=== PATIENT | female | born 1960 | race Caucasian/White ===

== ENCOUNTER 2022-08-09 10:11 | Inpatient (IN) | payer MEDICAID ==
[~2022-08-09] VITALS: Ht 154.9 cm; Wt 49.0 kg
[2022-08-09 10:49] LABS: BASOPHILS % (AUTO) 0.2 % (0-1); EOSINOPHILS % (AUTO) 0.1 % (0-6); HEMATOCRIT 51.1 % (35.0-45.0); HEMOGLOBIN 17.3 g/dl (12.0-16.0); LYMPHOCYTES % (AUTO) 9.3 % (21-51); MEAN CORPUSCULAR HEMOGLOBIN 30.9 PG (27.0-31.0); MEAN CORPUSCULAR HGB CONC 33.8 g/dL (33.0-36.5); MEAN CORPUSCULAR VOLUME 91.5 FL (78-98); MEAN PLATELET VOLUME 6.9 FL (7.4-10.4); MONOCYTES # (AUTO) 0.9 X10'3 (0-0.9); MONOCYTES % (AUTO) 7.9 % (2-12); NEUTROPHILS # (AUTO) 9.2 X10'3 (1.8-7.7); NEUTROPHILS % (AUTO) 82.5 % (42-75); PLATELET COUNT 481 X10'3 (140-440); RED BLOOD COUNT 5.58 X10'6 (4.20-5.60); RED CELL DISTRIBUTION WIDTH 13.3 % (11.5-14.5); WHITE BLOOD COUNT 11.2 X10'3 (4.5-11.0)
[2022-08-09] MEDS ORDERED: normal saline 1000ML IV soln IVB ONE ×2 (10:50→11:05)
[2022-08-09] MEDS ORDERED: ondansetron/PF 4mg/2ml inj IV ONE (10:50)
[2022-08-09 10:57] LABS: URINE HCG NEGATIVE (NEG)
[2022-08-09 11:01] LABS: ALANINE AMINOTRANSFERASE 42 U/L (12-78); ALBUMIN 3.3 G/DL (3.4-5.0); ALBUMIN/GLOBULIN RATIO 0.8 (1.1-1.5); ALKALINE PHOSPHATASE 78 IU/L (46-116); ANION GAP 9 (8-16); ASPARTATE AMINO TRANSFERASE 25 U/L (10-37); BILIRUBIN,TOTAL 0.9 MG/DL (0.1-1.0); BLOOD UREA NITROGEN 12 MG/DL (7-18); BUN/CREATININE RATIO 14.3 (10.0-20.0); CALCIUM 8.7 MG/DL (8.5-10.1); CHLORIDE 90 MMOL/L (99-107); CREATININE 0.84 MG/DL (0.40-0.90); GLUCOSE 133 MG/DL (70-104); LIPASE 51 U/L (73-393); POTASSIUM 3.3 MMOL/L (3.5-5.1); SODIUM 127 MMOL/L (135-145); TOTAL CARBON DIOXIDE 28.5 MMOL/L (24-32); TOTAL PROTEIN 7.7 G/DL (6.4-8.2); eGFR 68 ML/MIN
[2022-08-09] MEDS ORDERED: POTASSIUM BICARB 20meq eff tab 20 MEQ TABLET.EFF PO ONE (11:05)
[2022-08-09] MEDS ORDERED: magnesium 2GM in 50ml NS 50 ML IV ONE (11:05)
[2022-08-09 11:46] LABS: CLARITY,URINE SLIGHTLY CLOUDY (Clear); COLOR,URINE YELLOW (Yellow); GLUCOSE, URINE NEGATIVE (Neg); KETONES,URINE NEGATIVE (Neg); LEUKOCYTE ESTERASE ,URINE NEGATIVE (Neg); NITRITES, URINE NEGATIVE (Neg); OCCULT BLOOD,URINE LARGE (Neg); PROTEIN,URINE 100 mg/dl (Neg); UROBILINOGEN,URINE 0.2 E.U/dL (0.2-1.0)
[2022-08-09 11:54] LABS: UA COLLECTION TYPE CLN CATCH MIDSTREAM
[2022-08-09 11:57] LABS: BACTERIA,URINE 2+ /HPF (Neg); MUCUS STRANDS MODERATE /LPF (Neg); SQUAMOUS EPITHELIAL CELL,UR FEW /LPF (FEW)
--- NOTE | 2022-08-09 12:04 | NUR ---
Dr. George at bedside talking to patient
[2022-08-09] MEDS ORDERED: magnesium 4gm in 100ml NS 100 ML IV PRN (12:15)
[2022-08-09] MEDS ORDERED: magnesium Cl slow-release 64mg tablet PO PRN (12:15)
[2022-08-09] MEDS ORDERED: potassium Cl 40MEQ/1/2NS 520ml 520 ML IV PRN (12:15)
[2022-08-09] MEDS ORDERED: Potassium Cl inj 20 MEQ in normal saline 1000ml 990 ML IV SCH (12:15)
[2022-08-09] MEDS ORDERED: potassium Cl 20 mEq SR tablet PO PRN ×2 (12:15)
[2022-08-09] MEDS ORDERED: acetaminophen 325mg tablet PO PRN ×2 (12:15)
[2022-08-09] MEDS ORDERED: ondansetron/PF 4mg/2ml inj IV PRN (12:15)
[2022-08-09] MEDS ORDERED: magnesium 2GM in 50ml NS 50 ML IV PRN (12:15)
[2022-08-09] MEDS ORDERED: ciprofloxacin 250mg tablet PO ONE (12:20)
[2022-08-09] MEDS: potassium Cl 20mEq in NS 1,000 ML IV SCH (12:41)
[2022-08-09 13:00] LABS: CHOL/HDL RATIO 1.9 (0.00-4.99); CHOLESTEROL 178 MG/DL (0-200); HDL CHOLESTEROL 93 MG/DL (35-60); LDL CHOLESTEROL 65 MG/DL (50-100); TRIGLYCERIDES 43 MG/DL (20-135)
[2022-08-09] MEDS ORDERED: EZET10TA48 PO (13:15)
[2022-08-09] MEDS ORDERED: ALIR75PE5 SQ (13:16)
[2022-08-09] MEDS ORDERED: BUDE10.26 IH (13:20)
[2022-08-09] MEDS ORDERED: CHOL20004 PO (13:20)
[2022-08-09] MEDS ORDERED: ALBU17AE26 IH (13:20)
[2022-08-09] MEDS ORDERED: ASPI81TA52 PO (13:20)
[2022-08-09] MEDS ORDERED: OLME20TA23 PO (13:20)
[2022-08-09] MEDS ORDERED: ASCO-10 PO (13:21)
[2022-08-09] MEDS: budesonide 0.5mg/2ml UD nebule IH SCH (19:06)
[2022-08-09] MEDS: albuterol 2.5 MG/3 ML nebule NEB SCH ×2 (19:06→23:49)
[2022-08-09 19:30] VITALS: BP 111/68
[2022-08-09] MEDS ORDERED: enoxaparin 40mg/0.4ml syringe SQ SCH (20:00)
[2022-08-09 22:00] VITALS: BP 128/63
[2022-08-10 02:00] VITALS: BP 111/59
[2022-08-10] MEDS: potassium Cl 20mEq in NS 1,000 ML IV SCH (02:59)
[2022-08-10] MEDS: albuterol 2.5 MG/3 ML nebule NEB SCH ×3 (03:00→12:00)
[2022-08-10 06:00] VITALS: BP 108/61
[2022-08-10 06:21] LABS: BASOPHILS % (AUTO) 0.2 % (0-1); EOSINOPHILS % (AUTO) 0.2 % (0-6); LYMPHOCYTES # (AUTO) 1.7 X10'3 (1.1-4.8); MEAN CORPUSCULAR HEMOGLOBIN 30.8 PG (27.0-31.0); MEAN CORPUSCULAR HGB CONC 33.4 g/dL (33.0-36.5); MEAN CORPUSCULAR VOLUME 92.1 FL (78-98); MEAN PLATELET VOLUME 6.9 FL (7.4-10.4); MONOCYTES # (AUTO) 0.7 X10'3 (0-0.9); MONOCYTES % (AUTO) 10.4 % (2-12); NEUTROPHILS # (AUTO) 4.2 X10'3 (1.8-7.7); NEUTROPHILS % (AUTO) 63.2 % (42-75); PLATELET COUNT 339 X10'3 (140-440); RED BLOOD COUNT 4.56 X10'6 (4.20-5.60); RED CELL DISTRIBUTION WIDTH 13.3 % (11.5-14.5); WHITE BLOOD COUNT 6.6 X10'3 (4.5-11.0)
--- NOTE | 2022-08-10 06:34 | NUR ---
Patient in room [facility]. I have received report from Estrella Newman and had the opportunity to ask questions and assume patient care.
[2022-08-10 06:47] LABS: ALANINE AMINOTRANSFERASE 44 U/L (12-78); ALBUMIN 2.4 G/DL (3.4-5.0); ALBUMIN/GLOBULIN RATIO 0.8 (1.1-1.5); ALKALINE PHOSPHATASE 59 IU/L (46-116); ANION GAP 8 (8-16); ASPARTATE AMINO TRANSFERASE 27 U/L (10-37); BILIRUBIN,TOTAL 0.7 MG/DL (0.1-1.0); BLOOD UREA NITROGEN 8 MG/DL (7-18); BUN/CREATININE RATIO 12.9 (10.0-20.0); CHLORIDE 105 MMOL/L (99-107); CREATININE 0.62 MG/DL (0.40-0.90); GLUCOSE 100 MG/DL (70-104); POTASSIUM 4.1 MMOL/L (3.5-5.1); SODIUM 139 MMOL/L (135-145); TOTAL CARBON DIOXIDE 26.4 MMOL/L (24-32); TOTAL PROTEIN 5.6 G/DL (6.4-8.2); eGFR > 90 ML/MIN
[2022-08-10] MEDS: budesonide 0.5mg/2ml UD nebule IH SCH ×2 (07:55→09:00)
[2022-08-10] MEDS ORDERED: ascorbic acid 500mg tablet PO SCH (08:00)
[2022-08-10] MEDS ORDERED: aspirin 81mg, enteric-coated 1 TAB TABLET.DR PO SCH (08:00)
[2022-08-10] MEDS ORDERED: ezetimibe 10mg tablet PO SCH (08:00)
[2022-08-10] MEDS ORDERED: losartan 50mg tablet PO SCH (08:00)
[2022-08-10] MEDS ORDERED: cholecalciferol (vitamin D3) 1,000 unit (25mcg) tablet PO SCH (08:00)
[2022-08-10 08:45] VITALS: BP_SYST 105; BP_SYST 97; BP_SYST 98; BP_DIAS 55; BP_DIAS 57; BP_DIAS 58
[2022-08-10 11:17] VITALS: BP 120/48
[2022-08-10 11:19] VITALS: BP 120/48
--- NOTE | 2022-08-10 13:35 | NUR ---
Discharge instructions were reviewed with patient. patient verbalized understanding. Patient is alert, oriented, able to dress herself and expresses a readiness to discharge home. Patient gathered her belongings and was wheeled downstairs to be driven home by family/friend.
--- NOTE | 2022-08-10 15:46 | NUR ---
Charting by Suzy COLON reviewed by Kenya BUENROSTRO
[2022-08-11 17:14] LABS: HBSAG SCREEN Negative (Negative); HEP B CORE AB, TOT Negative (Negative)
[2022-08-17] MEDS ORDERED: ALIROCUMAB SQ SCH (10:00)
== END 2022-08-10 15:19 | disposition home or self-care (01) | DRG 426 ==
LOC: ER 10:11 → ED HOLD 12:18 → ORTHO 4S 19:23
PROVIDERS: ADMIT Internal Medicine; ATTEND Internal Medicine
DX: E87.1 Hypo-osmolality and hyponatremia (principal); I21.A1 Myocardial infarction type 2; E78.5 Hyperlipidemia, unspecified; E87.6 Hypokalemia; I10 Essential (primary) hypertension; J44.9 Chronic obstructive pulmonary disease, unspecified; R55 Syncope and collapse; Z88.0 Allergy status to penicillin; Z88.5 Allergy status to narcotic agent; Z79.899 Other long term (current) drug therapy; Z79.82 Long term (current) use of aspirin
CPT/HCPCS: 36415; 71045; 80053; 80061; 81001; 81025; 83605; 83690; 84484; 85025; 86704; 86705; 86706; 87040; 87081; 87088; 87340; 93306; 94640; 94760; 96365; 97161; 97530; 99285; G0378; J1650; J2405; J3475; J3480; J7030